=== PATIENT | male | born 1985 | race Caucasian/White ===

== ENCOUNTER 2020-01-03 20:39 | Emergency (ER) | payer SELFPAY ==
[2020-01-03 21:09] VITALS: BP 145/84; PULSE 87; RESP 14; TEMP 36.2; O2SAT 98; BMI 25.7
--- NOTE | 2020-01-03 21:17 | XRR_ITS ---
PROCEDURE INFORMATION: Exam: XR Left Hand Exam date and time: 01/03/2020 9:38 PM Age: 34 years old Clinical indication: Injury or trauma; Other: Crush injury; Crushing; Finger; Left; Thumb TECHNIQUE: Imaging protocol: XR Left hand. Views: 3 or more views. COMPARISON: No relevant prior studies available. FINDINGS: Bones/joints: Complex comminuted intra-articular fracture of the terminal phalanx left pollex. Mild displacement. No dislocation of the DIP joint. There are at least 6 fragments identified. 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 Soft tissues: Soft tissue swelling. XR/XR hand LT min 3V* [id number] IMPRESSION: Complex comminuted intra-articular fracture of the terminal phalanx left pollex.
--- NOTE | 2020-01-03 21:18 | W.ED.EXTPRO ---
HPI - Extremity Problem General: Chief complaint: Extremity Injury, Upper Stated complaint: smashed thumb Time Seen by Provider: 01/03/20 21:13 History of Present Illness: HPI Narrative: 34-year-old male presents with injury to his left hand. 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 Reports that he was able to use his thumb prior to the injury but now is unable to. Patient reports he is up-to-date on his tetanus. Patient has no other reported injuries Associated symptoms: Deny chest pain, fever(s) or rash Review of Systems Const: Denies: fever(s) or chills Card: Denies: chest pain or palpitations Resp: Denies: dyspnea or productive cough GI: Denies: abdominal pain, nausea or vomiting : Denies: flank pain Musc: Reports: other (Please see HPI) Skin/Breast: Denies: rash or pruritus Physical Exam Const: COMMON NORMALS: average body habitus, patient oriented x3 and no limitations GENERAL APPEARANCE: cooperative Resp: COMMON NORMALS: normal respiratory effort, No retractions, No use of accessory muscles and clear to auscultation bilaterally AUSCULTATION: clear to auscultation bilaterally Cardio: COMMON NORMALS: regular rate and regular rhythm RATE: regular rate RHYTHM: regular rhythm GI: COMMON NORMALS: Soft to palpation and non-tender PALPATION: Yes Soft to palpation Extremity: NARRATIVE EXTREMITY EXAM: Patient's left hand with congenital deformity with only a thumb present. The thumb is swollen especially the distal tip with a small abrasion/suturable laceration at the base of the fingernail. Fingernail does have mild hematoma under it. Patient with decreased range of motion. Neuro: COMMON NORMALS: patient oriented x3 and no focal motor deficits Psych: COMMON NORMALS: mental status grossly normal and Normal thought process present THOUGHT PROCESS: Normal thought process present Course Vital Signs: Vital signs: Vital Signs Temperature 97.2 F L 01/03/20 21:09 Pulse Rate 87 01/03/20 21:09 Respiratory Rate 20 H 01/03/20 21:57 Blood Pressure 145/84 01/03/20 21:09 Pulse Oximetry 97 01/03/20 21:57 MDM - Extremity (Nontraumatic) MDM Narrative: Medical decision making narrative: Review with Dr. Lucas. She would like patient to receive 1 g of Rocephin IM, flush, splint the thumb. He is to call their office first thing in the morning to arrange for an appointment. Patient was provided her contact information. Patient was discharged home in stable condition Discharge Plan Discharge Patient Disposition: Home Clinical Impression: Open displaced fracture of distal phalanx of left thumb Qualifiers: Encounter type: initial encounter Qualified Code(s): S62.522B - Displaced fracture of distal phalanx of left thumb, initial encounter for open fracture Condition: Stable Prescriptions: New Round O 5-325 mg tablet 1 tab PO Q4H PRN (Reason: pain) Qty: 10 RF: 0 Augmentin 875-125 mg tablet 1 tab PO BID Qty: 14 RF: 0 Discharge Orders: Discharge Order (Routine); Ordered 01/03/20 Ordered By: Tejas Jacobson Referrals: Carlitos Abdul MD [Primary Care Provider] - Discharge Diet: Regular Discharge Activity: Limit activity as instructed Patient Instructions: Thumb Fracture (ED) Activity Restrictions/Additional Instructions: Please Call Dr Lucas office first thing in morning for an appt time. [facility] limit use of left hand keep elevated ice to affected area as needed. Coding Level of Care Code ED Computer Recycling Worker for Chyna Fwsusie Exam Detailed
[2020-01-03 21:57] VITALS: RESP 20; O2SAT 97
[2020-01-03] MEDS: fentaNYL 50 mcg/mL INJ 2mL 100 MCG XX (21:57)
--- NOTE | 2020-01-04 00:05 | PC.NURSE ---
agree with this assessment
[2020-01-04 00:12] VITALS: BP 148/76; PULSE 82; RESP 20; O2SAT 97
== END 2020-01-03 22:50 | disposition home or self-care (01) ==
PROVIDERS: Emergency Provider Student in an Organized Health Care Education/Training Program; PCP Family Medicine
DX: S62.522B Displaced fracture of distal phalanx of left thumb, initial encounter for open fracture (principal); W31.89XA Contact with other specified machinery, initial encounter
CPT/HCPCS: 12345; 73130; 96365; 96372; 96375; 99281; 99283; J0696; J3010

== ENCOUNTER 2021-11-20 19:04 | Emergency (ER) | payer SELFPAY ==
[2021-11-20 19:13] VITALS: BMI 27.1
[2021-11-20 19:16] VITALS: BP 143/90; PULSE 117; RESP 16; TEMP 37.3; O2SAT 98
--- NOTE | 2021-11-20 19:23 | XRR_ITS ---
PROCEDURE INFORMATION: Exam: XR Right Hand Exam date and time: 11/20/2021 7:38 PM Age: 36 years old Clinical indication: Injury or trauma; Other: Cut; Laceration; Hand; Right TECHNIQUE: Imaging protocol: Radiologic exam of the Right hand. Views: 3 or more views. COMPARISON: No relevant prior studies available. FINDINGS: Bones/joints: Alignment is normal. No acute fracture. Soft tissues: Visible soft tissues are unremarkable. No radiopaque foreign body. XR/XR hand RT min 3V* [id number] IMPRESSION: No acute findings.
--- NOTE | 2021-11-20 19:23 | W.ED.WOUNDLC ---
HPI - Wound/Laceration General: Chief Complaint: Wound/Laceration Stated Complaint: Rt Hand Cut Deep Time Seen by Provider: 11/20/21 19:14 Source: patient Mode of arrival: ambulatory Limitations: no limitations History of Present Illness: 36-year-old male who states that he was working on the screen door began to fell and he tried to catch it and his hand went through the glass. States he has a laceration to his right hand over the dorsum of his hand in between his thumb and index finger there is roughly 6 to 7 cm he has full range of motion of that hand he states his last tetanus was within the last 5 years denies any other injuries. Associated symptoms: Denies chills, fever(s), nausea or vomiting Review of Systems Const: Denies: fever(s), chills, body aches or change in appetite Eyes: Denies: blurry vision or eye discomfort ENMT: Denies: throat pain or dental pain Card: Denies: chest pain Resp: Denies: dyspnea GI: Denies: abdominal pain, nausea, vomiting or diarrhea : Denies: dysuria Musc: Denies: neck pain or back pain Skin/Breast: Denies: rash Neuro: Denies: headache(s) Psych: Denies: depression Roger/Lymph: Denies: easy bruising All/Imm: Denies: urticaria PFSH ED PFSH: Medical History (Updated 11/20/21 @ 19:35 by Naveen Acosta MD) No pertinent past medical history Social History (Updated 11/20/21 @ 19:25 by Naveen Acosta MD) Substance/Drug Use: unknown Physical Exam Const: COMMON NORMALS: no acute distress, patient oriented x3 and healthy appearing HENMT: COMMON NORMALS: normocephalic and atraumatic HEAD & SCALP: normocephalic and atraumatic Eye: COMMON NORMALS: Equal, round and reactive pupils present and EOMs intact bilaterally PUPIL: Yes Equal, round and reactive pupils present Neck/C-Spine: COMMON NORMALS: full ROM and supple Chest: COMMONS NORMALS: normal inspection of the chest and normal palpation of entire chest wall Resp: COMMON NORMALS: normal respiratory effort, No retractions, No use of accessory muscles and clear to auscultation bilaterally AUSCULTATION: clear to auscultation bilaterally Cardio: COMMON NORMALS: regular rate, regular rhythm and No murmurs present (Cardio) RATE: regular rate RHYTHM: regular rhythm GI: COMMON NORMALS: Normal to inspection, nondistended, normoactive bowel sounds present, Soft to palpation, non-tender and no masses PALPATION: Yes Soft to palpation Extremity: COMMON NORMALS: normal to inspection and full ROM EXTREMITY IMAGE (FRONT): 1. 7cm laceration no tendon involvement Neuro: COMMON NORMALS: patient oriented x3, moves all extremities and no focal motor deficits Psych: COMMON NORMALS: mental status grossly normal, Normal thought process present and cooperative THOUGHT PROCESS: Normal thought process present Skin: COMMON NORMALS: no rashes or lesions noted and no wounds GENERAL SKIN EXAM: no rashes or lesions noted Procedures Laceration Laceration 1: Site: hand Side (If applicable): right Size (cm): 7 Description: linear Depth: simple, single layer Local Anesthetic: lidocaine 1% Amount of anesthesia used (mL): 15 Pre-repair: wound explored and irrigated extensively Skin layer closed with: nylon Size (cm): 5-0 Number of sutures: 9 Technique: simple, interrupted Course Vital Signs: Vital signs: Vital Signs Temperature 99.1 F 11/20/21 19:16 Pulse Rate 117 H 11/20/21 19:16 Respiratory Rate 16 11/20/21 19:16 Blood Pressure 143/90 11/20/21 19:16 Pulse Oximetry 98 11/20/21 19:16 Oxygen Delivery Me thod 11/20/21 19:16 MDM - Wound/Laceration Medical Decision Making Patient presents here with a laceration that was repaired x-ray shows no signs of foreign body no retained glass he is up-to-date on his tetanus he is stable for discharge he is to follow-up his PCP and return if worsening he understands agrees to plan. Discharge Plan Discharge Patient Disposition: Home Clinical Impression: Laceration Prescriptions: No Action Blanchard 5-325 mg tablet 1 tab PO Q4H PRN (Reason: pain) Qty: 10 0RF Augmentin 875-125 mg tablet 1 tab PO BID Qty: 14 0RF Discharge Orders: Discharge ED (Routine); Ordered 11/20/21 Ordered By: Naveen Acosta Referrals: Carlitos Abdul MD [Primary Care Provider] - Discharge Diet: Advance as tolerated Discharge Activity: Resume usual activity Patient Instructions: Laceration (ED) Activity Restrictions/Additional Instructions: suture removal in 10 days Coding Level of Care Code ED Science Professor for Chyna Fwd Exam Comprehensive
[2021-11-20] MEDS: HYDROcodone-acetaminophen 5-325 mg Tablet 1 TAB PO (19:27)
[2021-11-20] MEDS: neomycin-poly-bacitracin oint 28 gm 1 APPLIC TOPICAL (20:00)
== END 2021-11-20 20:01 | disposition home or self-care (01) ==
PROVIDERS: Emergency Provider Emergency Medicine; PCP Family Medicine
DX: S61.411A Laceration without foreign body of right hand, initial encounter (principal); W25.XXXA Contact with sharp glass, initial encounter
CPT/HCPCS: 12002; 73130; 99283

== ENCOUNTER 2023-03-19 09:57 | Emergency (ER) | payer SELFPAY ==
--- NOTE | 2023-03-19 10:11 | PC.PHAR ---
pt states he takes no prescription medications-pt states finished a zpac 2 weeks ago-
[2023-03-19 10:14] VITALS: BP 139/89; PULSE 100; RESP 18; TEMP 36.7; O2SAT 100
--- NOTE | 2023-03-19 10:17 | USCV_ITS ---
Devan Bradley Age: 37 Gender: M : 1985 Exam Date: 03/19/2023 10:52 Ordering Phys: Maida Parra Technologist: LUCIANA [place] [facility] [place]: LLE PAIN, SWELLING, AND DISCOLORATION HISTORY: Lower extremity swelling. Lower extremity pain. PROCEDURES: Venous duplex imaging was performed in only the left lower extremity. The following venous structures were evaluated: common femoral vein, profunda vein, proximal portion of the greater saphenous vein, superficial femoral vein, and the popliteal vein. In addition, the posterior tibial and peroneal trunk were evaluated. Serial compression, augmentation maneuvers, and spectral Doppler flow evaluation were performed. FINDINGS: No evidence of DVT seen in any vessel visualized at this time. Edema seen in left calf in area of interest CONCLUSIONS No evidence of left lower extremity DVT. Edema LEFT calf area of interest Osvaldo Zayas MD (Electronically Signed) Final Date: 19 March 2023 16:25 S
--- NOTE | 2023-03-19 10:17 | ED_ITS ---
HPI - Extremity Problem 2 General: Chief complaint: Skin/Abscess/Foreign Body Stated complaint: left leg hard red spot, dr kidd sent Time Seen by Provider: 03/19/23 09:59 Source: patient Mode of arrival: ambulatory Limitations: no limitations History of Present Illness: Patient is a 37-year-old male who presents to ED today with complaint of pain, redness, and swelling to his left lower extremity that he noticed a few days ago. Patient states since onset pain and swelling has seemed to worsen. He wonders if maybe he did not get bit by something. He has not had any injury or trauma. He reports that his neighbor is a physician and discussed symptoms with him who recommended coming to the ED for DVT evaluation. Patient denies any risk factors for DVT/PE. He does not complain of chest pain or shortness of breath. Denies fevers, chills, body aches. MD Complaint: extremity pain and extremity swelling Onset (ago): day(s) Pain Consistency: constant Location: left and lower extremity Radiation: none Relieving factors: nothing Exacerbating factors: nothing Associated symptoms: Reports no associated symptoms; Deny chest pain or fever(s) Review of Systems 2 Const: Denies: fever(s), chills, body aches, fatigue or malaise Card: Denies: chest pain Resp: Denies: dyspnea Musc: Reports: extremity pain and extremity swelling; Denies: neck pain, back pain, joint pain, joint swelling, joint redness, joint warmth or limited range of motion Skin/Breast: Reports: other (redness/pain L LE) Neuro: Denies: numbness in extremities, weakness in extremities, sensory changes or difficulty walking [facility] ED 2 PFSH: Medical History No pertinent past medical history Social History Substance/Drug Use: unknown Physical Exam 2 Const: COMMON NORMALS: no acute distress, average body habitus, patient oriented x3, no limitations, healthy appearing, alert and well nourished Resp: COMMON NORMALS: normal respiratory effort and clear to auscultation bilaterally AUSCULTATION: clear to auscultation bilaterally Cardio: COMMON NORMALS: regular rate and regular rhythm RATE: regular rate RHYTHM: regular rhythm Extremity: COMMON NORMALS: full ROM, capillary refill normal, no joint enlargement, no clubbing, cyanosis or edema and no pedal edema GENERAL: Yes normal exam except as noted LEFT LOWER EXTREMITY: Yes lower leg Left lower leg: Yes neurovascular exam (normal) OTHER: pt has redness/warmth and mild induration affecting the medial/posterior left lower leg; there does not appear any obvious palpable cords; no lymphangitic streaking; no obvious abscess formation/drainage at this time; he is tender to touch here; very small folliculitis like lesions presesnt EXTREMITY IMAGE (FRONT): 1. Neuro: COMMON NORMALS: patient oriented x3, moves all extremities, no focal motor deficits and no sensory deficits noted SENSORIUM/ORIENTATION: Yes alert Skin: NARRATIVE SKIN EXAM: see above for pertinent skin findings Course 2 Vital Signs: Vital signs: Vital Signs Temperature 98.1 F 03/19/23 10:14 Pulse Rate 100 03/19/23 10:14 Respiratory Rate 18 03/19/23 10:14 Blood Pressure 139/89 03/19/23 10:14 Pulse Oximetry 99 03/19/23 10:23 Oxygen Delivery Me thod Room Air 03/19/23 10:23 MDM - Extremity (Nontraumatic) Medical Decision Making Per Janel nail tech, there is no DVT present on his ultrasound. No fluid collection or abscess seen. Superficial edema seen in area of concern. Patient will be placed on antibiotics for a cellulitis/possible early abscess formation. Strict return ED precautions given. Differential Diagnosis Likely cellulitis, superficial thrombophlebitis and deep vein thrombosis of lower extremity Medical Records I reviewed the patient's medical records. XR interpretation done by ED provider, pending radiology final review Discharge Plan Discharge Patient Disposition: Home Clinical Impression: Cellulitis of left lower extremity Condition: Stable Prescriptions: New Bactrim DS 800-160 mg tablet 2 tab PO BID 7 Days Qty: 28 0RF No Action Tylenol Ex Str Rapid Release 500 mg Tablet 1,000 mg PO Q6H PRN (Reason: Pain) Discharge Orders: Discharge ED (Routine); Ordered 03/19/23 Ordered By: Maida Parra Referrals: Carlitos Abdul MD [Primary Care Provider] - Patient Instructions: Cellulitis (ED) Activity Restrictions/Additional Instructions: As we discussed continue to monitor the redness closely. You need to return to the emergency department for worsening redness, pain, red streaking up your leg, fevers, or any other concerns you may have. I hope you begin to feel better soon. Coding Level of Care Code ED Charge Manager for Chyna Varghese
[2023-03-19 10:23] VITALS: O2SAT 99
== END 2023-03-19 11:17 | disposition home or self-care (01) ==
PROVIDERS: Emergency Provider Physician Assistant; PCP Family Medicine
DX: L03.116 Cellulitis of left lower limb (principal)
CPT/HCPCS: 93971; 99284

== ENCOUNTER → 2023-07-16 12:22 | Outpatient (BNVA) | payer SELFPAY | PROVIDERS: PCP Family Medicine; Visit Provider Nurse Practitioner Family | DX: S60.021A Contusion of right index finger without damage to nail, initial encounter (principal); X58.XXXA Exposure to other specified factors, initial encounter | CPT/HCPCS: 73140 ==